=== PATIENT | male | born 1965 | race Caucasian/White ===

== ENCOUNTER 2019-08-14 00:21 | Outpatient (CLI) | payer OTHER, SELFPAY ==
[2019-08-14 18:56] LABS: SARS-CoV-2 RNA PCR Negative
== END 2019-08-14 00:22 | disposition home or self-care (01) ==
LOC: ANHCOVIDDT 00:21
PROVIDERS: PCP Internal Medicine; Visit Provider Internal Medicine Gastroenterology
DX: Z01.818 Encounter for other preprocedural examination (principal); Z11.59 Encounter for screening for other viral diseases
CPT/HCPCS: 87635; C9803; U0003

== ENCOUNTER 2019-08-16 00:40 | Day surgery (SDC) | payer OTHER, SELFPAY ==
[2019-08-10 14:11] VITALS: BMI 25.2
[2019-08-16 06:21] VITALS: BP 138/97; PULSE 80; RESP 18; TEMP 36.6; O2SAT 100; BMI 24.6
[2019-08-16] MEDS: LACTATED RINGERS 1,000 ML 150 ML IV CONT (06:35)
--- NOTE | 2019-08-16 06:56 | P.HP_ITS ---
History of Present Illness History of Present Illness Consent: Risks, benefits, and alternatives have been discussed and questions answered. Patient agrees to proceed with procedure. Chief complaint: Neoplasm Screening Narrative: Matt Melgar is a 53 year old W male Referred for his 1st screening colonoscopy. Patient is asymptomatic there is no family history of colon polyps or colon cancer. ON LICENSE OF [facility] Past Medical History Medical History (Updated 08/16/19 @ 06:57 by Seng Ma MD) Hypertension Surgical History Surgical History (Updated 08/16/19 @ 06:58 by Seng Ma MD) Status post tonsillectomy and adenoidectomy Meds Home Medications and Allergies Home Medications Medication Instructions Recorded Confirmed Type lisinopril 10 mg PO DAILY 08/10/19 08/10/19 History Allergies Allergy/AdvReac Type Severity Reaction Status Date / Time Sulfa (Sulfonamide Allergy Rash Verified 08/16/19 06:20 Antibiotics) nut - unspecified AdvReac Abdominal Verified 08/16/19 06:20 Pain Vital Signs Vital Signs - 24 hr 08/16/19 06:21 Temperature 36.6 C Pulse Rate 80 Respiratory Rate 18 Blood Pressure 138/97 H Pulse Oximetry 100 Exam Const: Orientation/consciousness: patient oriented x3 Resp: Auscultation: clear to auscultation bilaterally Cardio: Rate: regular rate Rhythm: regular rhythm Heart sounds: no murmurs GI: GI Palp: Yes Soft to palpation, No Tenderness to palpation present (GI), Yes No hepatosplenomegaly present and No Palpable mass present Auscultation: normal bowel sounds Neuro: General: patient oriented x3 and no focal motor deficits Extrem: General: no pedal edema Assessment and Plan Additional Plan screening colonoscopy in average risk patient
--- NOTE | 2019-08-16 07:02 | WPDANESEPPF ---
Anes - Initial Pre Proc Eval Procedure: Operation Date: 08/16/19 07:30 Proposed Procedures p Screening Colonoscopy - Seng Ma MD Date/Time: 08/16/19 07:02 Surgeon: Seng Ma MD Pre Op Diagnosis: Neoplasm Screening Patient Data Age: 53 Gender: M Height: 1.78 m Weight: 78 kg Last Vital Signs Temp 36.6 C 08/16/19 06:21 Pulse 80 08/16/19 06:21 Resp 18 08/16/19 06:21 BP 138/97 H 08/16/19 06:21 Pulse Ox 100 08/16/19 06:21 Allergies Allergy/AdvReac Type Severity Reaction Status Date / Time Sulfa (Sulfonamide Allergy Rash Verified 08/16/19 06:20 Antibiotics) nut - unspecified AdvReac Abdominal Verified 08/16/19 06:20 Pain Home Medications Medication Instructions Recorded Confirmed Type lisinopril 10 mg PO DAILY 08/10/19 08/10/19 History Patient hx anesthesia problems: none Family hx anesthesia problems: none [facility] Past Medical History Medical History (Updated 08/16/19 @ 07:02 by Girish Dahl MD) Gastroesophageal reflux disease Hypertension Surgical History Surgical History (Updated 08/16/19 @ 06:58 by Seng Ma MD) Status post tonsillectomy and adenoidectomy Anes - Eval Final PreProcedure Day of Procedure 08/16/19 07:02 Patient weight: normal Heart: regular rate and rhythm Lungs: clear to auscultation and normal air movement Airway: Mallampati scale class II Neurological: alert and oriented Last oral intake: >/= 8 hours ASA classification: II Emergent: no Anesthetic plan: proceed Anesthesia type and monitoring: general GIVS Informed Consent: The patient's anesthetic plan and its attendant risks and benefits were discussed with the patient/family/POA. Questions were solicited and answers provided to the satisfaction of the patient/family/POA.
[2019-08-16 07:48] VITALS: BP 111/07; PULSE 68; RESP 15; O2SAT 100
[2019-08-16 07:58] VITALS: BP 120/82; PULSE 67; RESP 15; O2SAT 100
[2019-08-16 08:10] VITALS: BP 122/80; PULSE 67; RESP 15; O2SAT 100
== END 2019-08-16 08:31 | disposition home or self-care (01) ==
PROVIDERS: PCP Internal Medicine; Visit Provider Internal Medicine Gastroenterology
PROC: 0DJD8ZZ Inspection of Lower Intestinal Tract, Via Natural or Artificial Opening Endoscopic (ICD-10-PCS; CPT 45378; principal; 2019-08-16 07:30)
DX: Z12.11 Encounter for screening for malignant neoplasm of colon (principal); K63.89 Other specified diseases of intestine; K64.1 Second degree hemorrhoids; K64.4 Residual hemorrhoidal skin tags; I10 Essential (primary) hypertension; Z88.2 Allergy status to sulfonamides; Z79.899 Other long term (current) drug therapy
CPT/HCPCS: G0121; J2704; J7120